=== PATIENT | female | born 2000 | race Caucasian/White ===

== ENCOUNTER 2022-04-26 08:19 | Observation (INO) | payer MEDICAID ==
[2022-04-26] MEDS ORDERED: PNV1TABL76 MT (11:52)
== END 2022-04-26 12:20 | disposition home or self-care (01) ==
LOC: 8 EST LDRP 08:19
PROVIDERS: ADMIT Obstetrics & Gynecology; ATTEND Obstetrics & Gynecology
DX: O99.891 Other specified diseases and conditions complicating pregnancy (principal); M54.50 Low back pain, unspecified; R10.30 Lower abdominal pain, unspecified; O62.9 Abnormality of forces of labor, unspecified; Z3A.38 38 weeks gestation of pregnancy
CPT/HCPCS: 59025; 76805; 76818; G0378

== ENCOUNTER 2022-04-27 08:30 | Inpatient (IN) | payer MEDICAID ==
[~2022-04-27] VITALS: Ht 170.2 cm; Wt 117.9 kg
[2022-04-27] MEDS: MISOPROSTOL 100MCG TABLET VG SCH ×4 (02:58→19:00)
[~2022-04-27 08:30] MED LIST: PNV1TABL76 MT
[2022-04-27] MEDS ORDERED: BUTORPHANOL TARTRATE 2 MG/ML VIAL IV PRN (09:30)
[2022-04-27] MEDS ORDERED: NALOXONE HCL 0.4 MG/ML 1ML VIAL IM PRN (09:30)
[2022-04-27] MEDS ORDERED: CARBOPROST TROMETHAMINE 250 MCG/ML AMPUL IM PRN (09:30)
[2022-04-27] MEDS ORDERED: METHYLERGONOVINE MALEATE 0.2 MG/ML IM PRN (09:30)
[2022-04-27] MEDS ORDERED: LIDOCAINE HCL 1% 20ML VIAL (Pyxis) INJ INFIL PRN (09:30)
[2022-04-27] MEDS: LACTATED RINGERS 1,000 ML IV SCH ×3 (10:20→21:00)
[2022-04-27 11:16] LABS: HEMATOCRIT. 29.8 % (36.0-48.0); HEMOGLOBIN. 9.4 g/dL (12.0-16.0); MEAN CORPUSCULAR HEMOGLOBIN 22.6 pg (28.0-32.0); MEAN CORPUSCULAR VOLUME 71.9 fL (81.0-99.0); MEAN PLATELET VOLUME 8.9 fl (7.4-10.4); PLATELET 218 x1000/uL (130-400); RED BLOOD CELL COUNT 4.15 mill/uL (4.2-5.4)
[2022-04-27 11:18] LABS: CLARITY URINE CLOUDY (CLEAR); COLOR URINE DARK YELLOW (YELLOW); KETONES URINE 2+ (NEGATIVE); LEUKOCYTE ESTERASE URINE 1+ (NEGATIVE); NITRITE URINE NEGATIVE (NEGATIVE); OCCULT BLOOD URINE NEGATIVE (NEGATIVE); PH URINE 5.5 (4.5-8.0); PROTEIN URINE 1+ (NEGATIVE)
[2022-04-27 11:31] LABS: PARTIAL THROMBOPLASTIN TIME 25.9 sec (23.4-31.0); PROTHROMBIN TIME 10.3 sec (9.6-11.0)
[2022-04-27 11:40] LABS: *AMPHETAMINES SCREEN URINE NEGATIVE (NEGATIVE); *BARBITURATES SCREEN URINE NEGATIVE (NEGATIVE); *BENZODIAZEPINES SCREEN URINE NEGATIVE (NEGATIVE); *COCAINE SCREEN URINE NEGATIVE (NEGATIVE); CANNABINOID URINE SCREEN NEGATIVE (NEGATIVE); METHADONE URINE SCREEN NEGATIVE (NEGATIVE); OPIATES URINE SCREEN NEGATIVE (NEGATIVE); PHENCYCLIDINE URINE SCREEN NEGATIVE (NEGATIVE)
[2022-04-27 14:04] LABS: PLATELET ESTIMATE NORMAL
[2022-04-27 15:34] LABS: HEPATITIS B SURFACE ANTIGEN NEGATIVE
[2022-04-27] MEDS ORDERED: ROPIVACAINE HCL/PF EPIDURAL 200 ML EPI SCH (20:00)
[2022-04-27] MEDS: OXYTOCIN 30 UNITS/500ML NS PMX 500 ML IV SCH (21:29)
[2022-04-28] MEDS: LACTATED RINGERS 1,000 ML IV SCH ×4 (02:58→06:39)
[2022-04-28] MEDS: MISOPROSTOL 100MCG TABLET VG SCH (03:00)
[2022-04-28] MEDS ORDERED: RHO(D) IMMUNE GLOBULIN 300 MCG/SYR IM PRN (08:45)
[2022-04-28] MEDS ORDERED: OXYTOCIN 30 UNITS/500ML NS PMX 500 ML IV SCH (08:45)
[2022-04-28] MEDS ORDERED: DIPHENHYDRAMINE 25MG CAPSULE PO PRN (08:45)
[2022-04-28] MEDS ORDERED: IBUPROFEN 800MG TABLET PO PRN (08:45)
[2022-04-28] MEDS ORDERED: LANOLIN OINT 7GM TUBE TOP PRN (08:45)
[2022-04-28] MEDS ORDERED: IBUPROFEN 400MG TABLET PO PRN (08:45)
[2022-04-28] MEDS ORDERED: PRENATAL VIT/FE FUMARATE/FA TABLET PO SCH (09:00)
[2022-04-28 11:00] VITALS: BP 126/66
[2022-04-28] MEDS: OXYTOCIN 30 UNITS/500ML NS PMX 500 ML IV SCH (11:17)
[2022-04-28 12:00] VITALS: BP 140/70
[2022-04-28 17:01] VITALS: BP 107/56
[2022-04-28 20:00] VITALS: BP 116/68
[2022-04-28] MEDS ORDERED: DOCUSATE SODIUM 100MG CAPSULE PO SCH (21:00)
[2022-04-28] MEDS ORDERED: RHO(D) IMMUNE GLOBULIN 300 MCG/SYR IM ONE (22:45)
[2022-04-29 04:00] VITALS: BP 117/66
[2022-04-29 07:17] LABS: BASOPHILS % 0.2 % (0.0-2.0); HEMATOCRIT. 25.7 % (36.0-48.0); HEMOGLOBIN. 8.1 g/dL (12.0-16.0); LYMPHOCYTES % 23.3 % (20.0-50.0); MEAN CORPUSCULAR HEMOGLOBIN 22.8 pg (28.0-32.0); MEAN CORPUSCULAR VOLUME 72.5 fL (81.0-99.0); MEAN PLATELET VOLUME 8.5 fl (7.4-10.4); MONOCYTES % 4.5 % (2.0-8.0); PLATELET 180 x1000/uL (130-400); RED BLOOD CELL COUNT 3.54 mill/uL (4.2-5.4); RED CELL DISTRIBUTION WIDTH 19.2 % (11.6-14.6)
[2022-04-29] MEDS ORDERED: FERROUS SULFATE 325MG TABLET PO SCH (07:30)
[2022-04-29 08:30] VITALS: BP 113/57
[2022-04-29] MEDS ORDERED: FERR-63 PO (09:40)
[2022-04-29] MEDS ORDERED: IBUP-2030 PO (09:40)
== END 2022-04-29 12:00 | disposition home or self-care (01) | DRG 560 ==
LOC: OBSVTOIN 08:30 → 8 EST LDRP 08:30 → 8EST 04-28 10:55
PROVIDERS: ADMIT Obstetrics & Gynecology; ATTEND Obstetrics & Gynecology
PROC: 10E0XZZ Delivery of Products of Conception, External Approach (ICD-10-PCS; principal; 2022-04-28)
PROC: 0HQ9XZZ Repair Perineum Skin, External Approach (ICD-10-PCS; 2022-04-28)
PROC: 3E0R3BZ Introduction of Anesthetic Agent into Spinal Canal, Percutaneous Approach (ICD-10-PCS; 2022-04-28)
PROC: 00HU33Z Insertion of Infusion Device into Spinal Canal, Percutaneous Approach (ICD-10-PCS; 2022-04-28)
PROC: 30233S1 Transfusion of Nonautologous Globulin into Peripheral Vein, Percutaneous Approach (ICD-10-PCS; 2022-04-29)
DX: O99.02 Anemia complicating childbirth (principal); Z37.0 Single live birth; O69.81X0 Labor and delivery complicated by cord around neck, without compression, not applicable or unspecified; O70.0 First degree perineal laceration during delivery; Z3A.39 39 weeks gestation of pregnancy; Z20.822 Contact with and (suspected) exposure to COVID-19
CPT/HCPCS: 36415; 80305; 81003; 85025; 86592; 86703; 86762; 86850; 86886; 86900; 87340; 87426; 90384; 93005; 99281; G0378; J3490; J7120; J2590; J2791